=== PATIENT | female | born 1980 | race Two or more races ===

== ENCOUNTER 2017-03-26 19:29 | Emergency (ER) | payer MEDICAID ==
[~2017-03-26] VITALS: Ht 165.1 cm; Wt 72.6 kg
--- NOTE | 2017-03-26 19:55 | Emergency Room Report ---
History of Present Illness General Chief Complaint: Abdominal Pain Source: Patient Present Illness HPI 36 YO Female presents to the ED c/o dysuria,hematuria and frequency with Low back pain, nausea, vomiting, fevers and chills x5 days.reports lower abdominal pain. reports pain is constant in nature and dull ache for back pain. She also reports that she has been taking Motrin consistently this past week and she has not developed epigastric pain and stomach sensitivity to this medication. Denies blood in the vomit or stool. She denies black tarry stools. LMP 3 months ago. Denies CP, Palpitations, LOC, AMS, dizziness, Changes in Vision, Sensation, paresthesias, or a sudden severe headache. Allergies: Coded Allergies: No Known Allergies (Unverified , 03/26/17) Patient History Past Medical History: see triage record Past Surgical History: none Pertinent Family History: none Last Menstrual Period: 3 months ago. Now: No Reviewed Nursing Documentation: PMH: Agreed, PSxH: Agreed Nursing Documentation-PMH Past Medical History: No Stated History Review of Systems All Other Systems: negative except mentioned in HPI Physical Exam Vital Signs Date Time Temp Pulse Resp B/P (MAP) Pulse Ox O2 Delivery O2 Flow Rate FiO2 03/26/17 19:41 102.9 124 20 138/68 97 Room Air Sp02 EP Interpretation: reviewed, normal General Appearance: no apparent distress, alert, GCS 15, non-toxic Head: normocephalic, atraumatic ENT: hearing grossly normal, normal voice Neck: full range of motion Respiratory: lungs clear, normal breath sounds, speaking full sentences Cardiovascular #1: regular rate, rhythm Gastrointestinal: normal bowel sounds, soft, non-distended, no guarding, no rebound, tenderness - mild epigastric tenderness to deep palpation. Rectal: deferred Genitourinary: normal inspection, CVA tenderness (R), CVA tenderness (L) Musculoskeletal: back normal, gait/station normal, normal range of motion, non- tender Neurologic: alert, oriented x3, responsive, motor strength/tone normal, sensory intact, normal gait, speech normal, grossly normal Psychiatric: judgement/insight normal Skin: normal color, no rash, warm/dry, well hydrated Medical Decision Making PA Attestation Dr. Purcell is my supervising Physician whom patient management has been discussed with. Diagnostic Impression: Primary Impression: Pyelonephritis Additional Impressions: UTI (urinary tract infection) Qualified Codes: N30.01 - Acute cystitis with hematuria Abdominal pain Qualified Codes: R10.13 - Epigastric pain ER Course 36 YO Female presents to the ED c/o dysuria,hematuria and frequency with Low back pain, nausea, vomiting, fevers and chills x5 days.reports lower abdominal pain. reports pain is constant in nature and dull ache for back pain. She also reports that she has been taking Motrin consistently this past week and she has not developed epigastric pain and stomach sensitivity to this medication. Denies blood in the vomit or stool. She denies black tarry stools. LMP 3 months ago. Denies CP, Palpitations, LOC, AMS, dizziness, Changes in Vision, Sensation, paresthesias, or a sudden severe headache. Ddx considered but are not limited to UTi , Pyelo, STI, Stone, Cystitis Vital signs: are WNL, pt. is afebrile H&PE are most consistent with UTI - Pyelo due to CVA tenderness. Gastritis also suspected from PE and HPI of consistent NSAID use. ORDERS: - UA labs are attached : Nitrite Positive, moderate bacteria and elevated leuks. - Urine HCG: Negative. ED INTERVENTIONS: -1 Liter NS - Zofran IV - Tylenol PO -Bactrim DS PO -Pepcid PO -Mylanta PO -Lidocaine viscous PO -Pyridium -I do not identify an acute emergent condition at this time. With current presentation NON-toxic/ Alert/ Ambulatory, pt. is stable for close outpatient follow up and oral antibiotic treatment. D/w pt. to return promptly to ED with worsening or new symptoms.- Pt. (and or responsible alliance party) verbalizes' understanding and agreement with proposed treatment plan.proposed treatment plan. DISCHARGE: At this time pt. is stable for d/c to home. Will provide printed patient care instructions, and any necessary prescriptions. Care plan and follow up instructions have been discussed with the patient prior to discharge. Labs Test 03/26/17 19:55 Urine Color [place] Urine Appearance Slightly cloudy Urine pH 6 (4.5-8.0) Urine Specific [place] 1.015 (1.005-1.035) Urine Protein 2+ (NEGATIVE) Urine Glucose (UA) Negative (NEGATIVE) Urine Ketones 1+ (NEGATIVE) Urine Occult Blood 5+ (NEGATIVE) Urine Nitrite Positive (NEGATIVE) Urine Bilirubin 3+ (NEGATIVE) Urine Ictotest Negative Urine Urobilinogen 8 MG/DL (0.0-1.0) Urine Leukocyte Esterase 3+ (NEGATIVE) Urine RBC 5-10 /HPF (0 - 2) Urine WBC 5-10 /HPF (0 - 2) Urine Squamous Epithelial Cells Occasional /LPF Urine Bacteria Moderate /HPF (NONE) Urine HCG, Qualitative Negative Last Vital Signs Date Time Temp Pulse Resp B/P (MAP) Pulse Ox O2 Delivery O2 Flow Rate FiO2 03/26/17 19:41 102.9 124 20 138/68 97 Room Air Disposition: HOME, SELF-CARE Condition: Stable Patient Instructions: Abdominal Pain, Adult, Gastritis, Adult, Pyelonephritis, Adult, Urinary Tract Infection Additional Instructions: Take medications as directed. Follow up with a Primary Care Provider in 3-5 days, even if your symptoms have resolved. --Please review list of primary care clinics, if you do not already have a primary care provider Return sooner to ED if new symptoms occur, or current symptoms become worse. Pyridium will cause your urine to change color (Red/[place]), this is a normal side effect of the medication. - Please note that this Emergency Department Report was dictated using [employer] social technology software, occasionally this can lead to erroneous entry secondary to interpretation by the dictation equipment. Tania Green Mar 26, 2017 19:55
[2017-03-26] MEDS ORDERED: Lidocaine 2% Visc 15ml soln ORAL ONE (20:00)
[2017-03-26] MEDS ORDERED: Bactrim-DS 1 tab ORAL ONE (20:00)
[2017-03-26] MEDS ORDERED: Mylanta II UD 30ml ORAL ONE (20:00)
[2017-03-26 20:13] LABS: APPEARANCE,URINE SLIGHTLY CLOUDY; BILIRUBIN, URINE 3+ (NEGATIVE); GLUCOSE, URINE (UA) NEGATIVE (NEGATIVE); KETONES,URINE 1+ (NEGATIVE); LEUKOCYTE ESTERASE ,URINE 3+ (NEGATIVE); NITRITE,URINE POSITIVE (NEGATIVE); PH,URINE 6 (4.5-8.0); PROTEIN,URINE 2+ (NEGATIVE); UROBILINOGEN,URINE 8 MG/DL (0.0-1.0)
[2017-03-26 20:16] LABS: COLOR,URINE ORANGE
[2017-03-26] MEDS ORDERED: Phenazopyridine 200mg tab ORAL ONE (21:00)
[2017-03-26] MEDS ORDERED: TYLENOL EXTRA500 MG ORAL (21:02)
[2017-03-26] MEDS ORDERED: PHENAZOPYRIDIN200 MG ORAL (21:02)
[2017-03-26] MEDS ORDERED: ZANTAC150 MG ORAL (21:02)
[2017-03-26] MEDS ORDERED: BACTRIM DS TAB1 EAC1 ORAL (21:02)
[2017-03-26 21:05] VITALS: BP 138/68
[2017-03-26 21:22] VITALS: BP 138/68
== END 2017-03-26 21:23 | disposition home or self-care (01) ==
LOC: EMR 20:00
DX: N12 Tubulo-interstitial nephritis, not specified as acute or chronic (principal); N39.0 Urinary tract infection, site not specified; R10.13 Epigastric pain
CPT/HCPCS: 81003; 81025; 87086; 96361; 96374; 99284; J2405